=== PATIENT | male | born 1980 | race African-American/Black ===

== ENCOUNTER 2021-11-23 15:31 | Emergency (ER) | payer SELFPAY ==
[2021-11-23] MEDS ORDERED: Acetaminophen 500 MG TAB ONE (15:44)
[2021-11-23] MEDS ORDERED: Ondansetron ODT 4 MG TAB ONE (17:31)
[2021-11-23] MEDS ORDERED: Ibuprofen 200 MG TAB ONE (17:31)
== END 2021-11-23 17:38 | disposition home or self-care (01) ==
LOC: CSHERS 15:31
DX: U07.1 COVID-19 (principal); J06.9 Acute upper respiratory infection, unspecified; F17.210 Nicotine dependence, cigarettes, uncomplicated
CPT/HCPCS: 99283; Q0162; U0003; U0005